=== PATIENT | female | born 2000 | race African-American/Black ===

== ENCOUNTER 2025-01-06 10:36 | Outpatient (CLI) | payer OTHER, SELFPAY ==
--- NOTE | ~2025-01-06 | US_ITS ---
EXAMINATION: US OB /maternal detail DATE: 01/06/2025 12:37 INDICATION: anatomic survey during second trimester TECHNIQUE: Multiple obstetric sonographic images performed. FINDINGS: There is a single living fetus in transverse lie with vertex to maternal left. The placenta is anteri or with caudal margin 3.1 cm from the internal cervical os. Small internal very hypoechoic placental jesus. Normal cervical length of 4.4 cm. Inadequate fluid volume is subjectively normal with normal de epest vertical pocket measurement of 4.3 cm. heart rate of 155 beats per minute. The following anatomy was identified as normal: Ventricles, choroid plexus, falx and cava septum pellucidum Cerebellum and cisterna magna Nuchal fold Nasal bone Upper lip Spine Heart Diaphragm Stomach Kidneys Bladder 3 vessel cord and cord insertion Bilateral upper and lower extremities including hands and feet The following biometric data were obtained: BPD: 4.7 cm -> 20 weeks 2 days Head circumference: 17.6 cm -> 20 weeks 1 days Abdominal circumference: 14.9 cm -> 20 weeks 1 days Femur length: 3.5 cm -> 21 weeks 0 days These measurements are concordant. Head circumference to abdominal circumference ratio: 1.19 (normal range 1.07-1.25). Estimated weight: 356 g (+/-) 53 g. or 13 oz. (+/-) 2 oz. IMPRESSION: 1. Single living fetus with transverse lie with heart rate of 155 bpm. 2. Gestational age by ultrasound of 20 weeks 3 day(s) (+/-) 1 week 3 day(s) with ultrasound estimat ed date of delivery (YONIS) of 05/23/2025. Estimated weight is 26th percentile by Hadlock criteria when is used as the YONIS. Please correlate with clinical information or earlier ultrasounds for most accurate YONIS. 3. Normal survey. Reviewed, dictated and finalized at location B. IMPRESSION: 1. Single living fetus with transverse lie with heart rate of 155 bpm. 2. Gestational age by ultrasound of 20 weeks 3 day(s) (+/-) 1 week 3 day(s) w ith ultrasound estimated date of delivery (YONIS) of 05/23/2025. Estimated w eight is 26th percentile by Hadlock criteria when is used as the YONIS. Please co rrelate with clinical information or earlier ultrasounds for most accurate YONIS. 3. Normal survey.
--- OUTSIDE RECORDS SUMMARY | 2025-01-06 11:58 | XMS_ITS | Clinical Summary ---
Author Organization [facility] Address [address] [place] [address] Care Team Providers Care Food And Nutrition Professor Name Role Phone None, Provider MD Primary Care Provider Unavaila ble Allergies No known active allergies Medications Acetaminophen-C odeine (TYLENOL/CODEIN E #3) 300-30 MG tabletIndicatio ns:Acute Pain < 7 Day Supply Take 1-2 tablets by mouth every 4 (four) hours as needed for Pain. 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 Sex Female 10:41 PM CDT Gender Identity Not on file Sexual Orientation Not on file Last Filed Vital Signs Vital Sign Reading Time Taken Comments Blood Pressure 118/94 04/27/2022 10:46 PM CDT Pulse 85 04/27/2022 10:46 PM CDT Temperature 36.3 C (97.3 F) 04/27/2022 10:46 PM CDT Respiratory Rate 18 04/27/2022 10:46 PM CDT Oxygen Saturation 100% 04/27/2022 10:46 PM CDT Inhaled Oxygen Concentration - - Weight 90.9 kg (200 lb 6.4 oz) 04/27/2022 10:46 PM CDT Height 167.6 cm (5' 6 ) 04/27/2022 10:46 PM CDT Body Mass Index 32.35 04/27/2022 10:46 PM CDT Plan of Treatment Health Maintenance Due Date Last Done Comments Cervical Cancer Screening Pap Smear (Age 21 to 29) Every 3 Years 2002 Cervical Cancer Screening 2002 Annual Physical 2005 HPV Vaccines (1 - 3-dose series) 2017 Meningococcal B Vaccine (1 of 2 - Standard) 2018 Hepatitis C 01/09/2020 DTaP, Tdap and Td Vaccines (6 - Td or Tdap) 02/04/2023 02/04/2013, 03/21/2006, 2002, Additional history exists COVID-19 Vaccine ( season) 2024 Pneumococcal Vaccine: Pediatrics (0 to 5 Years) and At-Risk Patients (6 to 64 Years) Aged Out 2002, 2002 No longer eligibl e based on patient's age to complete this topic Hepatitis B Vaccines Completed 2002, 2002, 2002, Additional history exists Meningococcal Vaccine Aged Out 02/04/2013 No haritha afua eligible based on patient's age to complete this topic RSV Immunizations Under 20 Months Aged Out No longer eligible based on patient's age to complete this topic Insurance [employer] Member Subscriber Plan / Payer (Ef fective 2022-Present) Name:Juanis Louis Relation to Subscriber:Self Name:Juanis Louis Payer ID:[id number] (NAIC) Type:Not on file Address: [address] [employer] [place] [id number] Care Teams Food And Nutrition Professor Relationship Specialty Start Date End Date None, Provider, PCP - General 04/27/22
--- OUTSIDE RECORDS SUMMARY | 2025-01-06 11:58 | XMS_ITS | Clinical Summary ---
Author Organization [address] Address [address] [place] [id number] Care Team Providers Care Practicing Md Anesthesiologist Name Role Phone Ishaan Soto MD Primary Care Provider +1- [phone] Medications No known medications Social History Tobacco Use Types Packs/Day Years Used Date Smoking Tobacco: Never Assessed Personal Safety Answer Date Recorded Getting School Help Needed Not on file 10/08 Comments Unknown Sex and Gender Information Value Date Recorded Sex Assigned at Not on file Legal Sex Female 3:09 PM CDT Gender Identity Not on file Sexual Orientation Not on file Last Filed Vital Signs Vital Sign Reading Time Taken Comments Blood Pressure 133/92 07/05/2019 3:21 PM CDT Pulse 105 07/05/2019 3:21 PM CDT Temperature 37 C (98.6 F) 07/05/2019 3:21 PM CDT Respiratory Rate - - Oxygen Saturation 98% 07/05/2019 3:21 PM CDT Inhaled Oxygen Concentration - - Weight 68.8 kg (151 lb 10.9 oz) 07/05/2019 3:21 PM CDT Height - - Body Mass Index - - Plan of Treatment Not on file Insurance [facility] Care Teams Practicing Md Anesthesiologist Relationship Specialty Start Date End Date Ishaan Soto MD [address] [place] [address] PCP - General Pediatrics 07/09/19
--- OUTSIDE RECORDS SUMMARY | 2025-01-06 11:58 | XMS_ITS | Referral Summary ---
Author Organization [address] Address [address] [place] [id number] Care Team Providers Care Hourly Sign Language Interpreter Name Role Phone Ishaan Soto MD Primary Care Provider +1- [phone] Medications No known medications Social History Tobacco [...] Plan of Treatment Not on file Insurance [facility] Care Teams Hourly Sign Language Interpreter Relationship Specialty Start Date End Date Ishaan Soto MD [address] [place] [address] PCP - General Pediatrics 07/09/19
== END 2025-01-06 10:37 | disposition home or self-care (01) ==
PROVIDERS: PCP Obstetrics & Gynecology Gynecology; Visit Provider Obstetrics & Gynecology Gynecology
DX: Z36.9 Encounter for antenatal screening, unspecified (principal); Z3A.20 20 weeks gestation of pregnancy
CPT/HCPCS: 76805

== ENCOUNTER 2025-05-16 06:09 | Inpatient (IN) | payer OTHER, SELFPAY ==
[2025-05-16] VITALS (237 sets, daily range): BP systolic 101–157; BP diastolic 49–116; PULSE 79–123; TEMP 36.2–36.8; O2SAT 91–100; BMI 42.2
--- OUTSIDE RECORDS SUMMARY | 2025-05-16 06:14 | XMS_ITS | Clinical Summary ---
Author Organization [address] Address [address] [place] [id number] Care Team Providers Care Crm Consultant Name Role Phone Ishaan Soto MD Primary Care Provider +1- [phone] Medications No known medications Social History Tobacco [...] Plan of Treatment Not on file Insurance [facility] Care Teams Crm Consultant Relationship Specialty Start Date End Date Ishaan Soto MD [address] [place] [address] PCP - General Pediatrics 07/09/19
--- OUTSIDE RECORDS SUMMARY | 2025-05-16 06:14 | XMS_ITS | Clinical Summary ---
Author Organization [facility] Address [address] [place] [address] Care Team Providers Care Forest Resources Professor Name Role Phone None, Provider MD Primary Care Provider Unavaila ble Allergies No known active allergies Medications Acetaminophen-C odeine (TYLENOL/CODEIN E #3) 300-30 MG tabletIndicatio ns:Acute Pain < 7 Day Supply Take 1-2 tablets by mouth every 4 (four) hours as needed for Pain. 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 Sex Female 10:41 PM CDT Gender [...] 10:46 PM CDT Height 167.6 cm (5' 6) 04/27/2022 10:46 PM CDT Body Mass Index [...] 03/21/2006, 2002, Additional history exists COVID-19 Vaccine (2023- season) 2024 Pneumococcal Vaccine: Pediatrics (0 to 5 Years) and At-Risk Patients (6 to 49 Years) Aged Out 2002, 2002 No longer eligibl e based on patient's age to complete this topic Hepatitis B Vaccines Completed 2002, 2002, 2002, Additional history exists Meningococcal Vaccine Aged Out 02/04/2013 No haritha afua eligible based on patient's age to complete this topic RSV Immunizations Under 20 Months Aged Out No longer eligible based on patient's age to complete this topic Insurance [employer] Member Subscriber Plan / Payer (Ef fective 2022-Present) Name:Juanis Louis Relation to Subscriber:Self Name:Juanis Louis Payer ID:[id number] (NAIC) Type:Not on file Address: [address] Care Teams Forest Resources Professor Relationship Specialty Start Date End Date None, Provider, PCP - General 04/27/22
[2025-05-16 06:44] LABS: Hematocrit 35.6 % (37.0-47.0); Hemoglobin 11.3 g/dL (12.0-15.0); Immature Granulocyte Percent A 0.9 % (0-0.5); Lymphocytes Absolute Auto 2.19 K/mm3 (0.9-3.2); Mean Corpuscular HGB Conc 31.7 g/dl (32-36); Mean Corpuscular Hemoglobin 25.6 pg (26-34); Mean Corpuscular Volume 80.7 fl (80-100); Nucleated Red Blood Cells Absolute Auto 0.000 K/mm3 (0.0-0.012); Nucleated Red Blood Cells Perc 0.0 % (0.0-0.2); Platelet Count Result 232 k/mm3 (150-375); Red Blood Count 4.41 M/mm3 (4.2-5.4); White Blood Count 13.0 K/mm3 (4.5-10.0)
[2025-05-16] MEDS: LACTATED RINGERS 1,000 ML 125 ML IV CONT (06:52)
[2025-05-16] MEDS: OXYTOCIN 30 UNITS/NS 500 ML 30 UNITS/500 ML BAG 6 UNITS IV CONT (07:00)
--- NOTE | 2025-05-16 07:03 | LDADM ---
This patient, Juanis Louis, was admitted to Labor/Delivery/Recovery 106 on 05/16/25 at 06:09. Plans for labor, pain management and were discussed with patient. Patient/family oriented to hospital policies and general routines including ID bracelet, bed and alarms, visiting hours, pain management, procedures, bathroom and other care routines, personal items, smoking policy, room service/diet and guest tray routines, infant security routines, and visiting hours. Patient/Family are encouraged to report perceived risks to care and to ask questions if they do not understand what they are told or what they should do. See OBIX for further documentation.
--- NOTE | 2025-05-16 07:07 | WPDANESEPP ---
Anes - Eval Pre Procedure Procedure: labor epidural Date/Time: 05/16/25 07:07 Surgeon: austin Preop Diagnosis: pain during labor Pre Op Diagnosis: IOL Patient Data Age: 25 Gender: F Height: Weight: Last Vital Signs Temp 36.3 C L 05/16/25 06:57 Pulse 120 H 05/16/25 07:00 BP 135/80 05/16/25 07:00 Allergies Allergy/AdvReac Type Severity Reaction Status Date / Time No Known Allergies Allergy Verified 04/21/25 13:23 Home Medications ?Medication ?Instructions ?Recorded ?Confirmed ?Type vits no.130-ferrous fum 1 tablet PO DAILY 04/21/25 04/21/25 History 27 mg iron-folic acid 800 mcg tablet ( Vitamin) Laboratory Tests 05/16/25 06:20 WBC 13.0 H K/mm3 (4.5-10.0) RBC 4.41 M/mm3 (4.2-5.4) Hgb 11.3 L g/dL (12.0-15.0) Hct 35.6 L % (37.0-47.0) MCV 80.7 fl (80-100) MCH 25.6 L pg (26-34) MCHC 31.7 L g/dl (32-36) RDW 14.6 H % (11.5-14.5) Plt Count 232 k/mm3 (150-375) MPV 10.8 H fl (7.4-10.4) Immature Gran % (Auto) 0.9 H % (0-0.5) Neut % (Auto) 75.8 H % (45.5-73.1) Lymph % (Auto) 16.8 L % (18.3-44.2) Sheridan % (Auto) 5.8 % (2.6-8.5) Eos % (Auto) 0.5 % (0-4.4) Baso % (Auto) 0.2 % (0.2-1.2) Lymph # (Auto) 2.19 K/mm3 (0.9-3.2) Sheridan # (Auto) 0.8 H K/mm3 (0.1-0.6) Eos # (Auto) 0.1 K/mm3 (0-0.3) Baso # (Auto) 0.0 K/mm3 (0.0-0.1) Abs Immat Gran (auto) 0.12 H K/mm3 (0.00-0.031) Absolute Neuts (auto) 9.9 H K/mm3 (1.3-6.7) Absolute Nucleated RBC 0.000 K/mm3 (0.0-0.012) Nucleated RBC % 0.0 % (0.0-0.2) Sodium Pending Potassium Pending Chloride Pending Carbon Dioxide Pending Anion Gap Pending BUN Pending Creatinine Pending Estim Creat Clear Calc Pending Estimated GFR Pending Glucose Pending Uric Acid Pending Calcium Pending Total Bilirubin Pending AST Pending ALT Pending Alkaline Phosphatase Pending Total Protein Pending Albumin Pending Patient hx anesthesia problems: none Family hx anesthesia problems: none Results Review: All pre-operative results and documents have been reviewed as part of the pre-operative evaluation. [facility] Past Medical History Medical History (Updated 05/16/25 @ 07:08 by Jacinta Casas CRNA) IUP (intrauterine ), incidental Social History Social History Substance use: never Spiritual care concerns: No Exam Day of Procedure 05/16/25 07:07
[2025-05-16 07:17] LABS: Alanine Aminotransferase 14 U/L (6-35); Albumin Level 3.6 g/dL (3.5-5.1); Alkaline Phosphatase 157 U/L (38-126); Anion Gap 10 mmol/L (4-12); Aspartate Amino Transferase 23 U/L (14-36); Bilirubin,Total 0.3 mg/dL (0.2-1.3); Blood Urea Nitrogen 4 mg/dL (7-17); Calcium 9.2 mg/dL (8.4-10.2); Carbon Dioxide 19 mmol/L (22-30); Chloride 107 mmol/L (98-107); Estimated Glomerular Filt Rate > 60; Glucose 106 mg/dL (65-110); Potassium 3.5 mmol/L (3.4-5.0); Sodium 136 mmol/L (137-145); Total Protein 7.2 g/dL (6.3-8.2); Uric Acid 4.6 mg/dL (2.5-7.5)
[2025-05-16 08:45] LABS: Syphilis IgG/IgM Antibody Non-Reactive (Nonreactive)
--- NOTE | 2025-05-16 10:17 | WPDOBADMIT ---
Obstetrics - Admit Note Admission Note: record reviewed. No pertinent additions to the history and/or any subsequent changes in the physical findings that are not consistent with the expected course of the were found. Additions to the history and/or subsequent changes in the physical findings follow. Here for MIL. Cervix 2-3/70/-2 AROM with clear fluid. FHTS cat I. Pitocin per protocol.
[2025-05-16] MEDS: LACTATED RINGERS 1,000 ML 999 ML IV CONT ×2 (10:54→16:01)
[2025-05-16] MEDS: ONDANSETRON INJ 4 MG/2 ML VIAL IV PUSH (10:58)
[2025-05-16] MEDS: fentaNYL CITRATE INJ (*CRX) 100 MCG/2 ML VIAL IV PUSH (11:00)
[2025-05-17] VITALS (142 sets, daily range): BP systolic 100–162; BP diastolic 42–133; PULSE 32–194; RESP 16–18; TEMP 36.4–37; O2SAT 75–100
[2025-05-17] MEDS: LACTATED RINGERS 1,000 ML 125 ML IV CONT (00:16)
[2025-05-17] MEDS: TERBUTALINE SULFATE 1 MG/ML VIAL 0.25 MG SUB-Q (00:43)
[2025-05-17] MEDS: OXYTOCIN 30 UNITS/NS 500 ML 30 UNITS/500 ML BAG 6 UNITS IV CONT (01:50)
[2025-05-17] MEDS: AMPICILLIN SODIUM 2 GM in SODIUM CHLORIDE 0.9% IV 100 ML 200 ML IVPB (04:23)
--- NOTE | 2025-05-17 06:42 | PM.OBPNLAB ---
Pain Control Date/time seen: 05/17/25 06:42 Pain control: epidural Pelvic Exam Dilation (cm): 10 station: +2 Amniotic membrane status: Ruptured Contractions Monitor mode: Internal Contraction pattern: Regular Status status: Category l Assessment and Plan Assessment: induction ongoing and other (Will start pushing) Comments: slow steady progress despite pitocin being stopped on and off FHTs currently Cat I. Several bradycardic episodes in night that resolved with position change, dc pitocin, and terb x 1.
--- NOTE | 2025-05-17 07:34 | P.PCNOB_ITS ---
OB - Vaginal Delivery Note Procedure Delivery date: 05/17/25 Events: Other (MIL at 39 wks) Induction method: AROM and Per Pitocin Protocol Delivery monitor: External FHT and Internal Uterine Route of delivery: Episiotomy description: None Laceration Description: Periurethral (left) Delivery repair: vicryl (3-0) Specimen: No Quantitative Blood Loss (ml): 150 Anesthesia type: Epidural Disposition: PACU Complications: No immediate complications [place] Baby Date of : 05/17/25 Gestational Age by Date: 39 Infant gender: Female presentation: vertex position: Right Occiput Anterior Placenta delivery description: Spontaneous Cord Vessel Description: 3 Vessels, Delayed Cord Clamping and Other (cord looped at neck) score one minute: 8 score five minutes: 9
--- NOTE | 2025-05-17 07:35 | P.DS_ITS ---
DS: Admitting Diagnosis Discharge Date 05/18/25 Admitting Diagnosis IUP 39 wks for ALFRED DS: Discharge Diagnosis Discharge Diagnosis (1) (normal spontaneous vaginal delivery): Code(s): O80 - Encounter for full-term uncomplicated delivery Status: Acute OB - DS: Summary OB Procedures : Ultrasound OB Procedures Intrapartum: Spontaneous Vag Delivery OB Procedures: : None Peripartum Data Infant Delivery Method: Natural Vaginal Laceration Description: Periurethral (left) Episiotomy description: None complications: none Status at Discharge Functional status at discharge: independent ambulation Overall status at discharge: patient is progressing back to baseline Time Spent with Patient Time attestation: Total time spent providing and/or coordinating discharge services: DS: Data Data Completed and Pending Labs on day of discharge: Labs from last 24 hours 05/16/25 06:20 Syphilis IgG/IgM Ab Non-reactive Antibody Screen Negative Discharge Plan Discharge Attending physician on discharge: Karen Nieto Discharging Clinician: Karen Nieto Anticipated Discharge Date/Time: 05/19/25 07:36 Patient Disposition: Home Activity: may shower and pelvic rest Diet: regular Patient Instructions: Antibiotic Form Patient Language: Montserratian Stand Alone Forms: General Discharge Information Follow-up/Referrals: Karen Nieto MD [Physician] - 6 Weeks Discharge Medications: Continued Vitamin 27 mg iron- 800 mcg tablet 1 tablet PO DAILY Date of admission: 05/16/25 06:09 Primary Care Provider: UNKNOWN,DOCTOR Admitting Provider: Karen Nieto Attending physician on admission: Karen Nieto Condition: Stable
[2025-05-17] MEDS: OXYTOCIN 30 UNITS/NS 500 ML 30 UNITS/500 ML BAG 125 UNITS IV CONT (07:54)
--- NOTE | 2025-05-17 09:45 | PC.NURSE ---
Patient transferred to post room #278 via crib. Support person present. Oriented to unit, room, information board, rooming in, admission packet and security measures. Patient verbalizes understanding.
[2025-05-17] MEDS: IBUPROFEN 600 MG TABLET PO ×2 (11:18→19:12)
[2025-05-18 05:02] LABS: Hematocrit 34.0 % (37.0-47.0); Hemoglobin 10.6 g/dL (12.0-15.0)
[2025-05-18 08:15] VITALS: BP 139/97; PULSE 86; RESP 16; TEMP 36.5; O2SAT 100
[2025-05-18] MEDS: IBUPROFEN 600 MG TABLET PO (08:23)
--- NOTE | 2025-05-18 09:24 | P.PNOB_ITS ---
OB - PN: Subj Subjective Date/time seen: 05/18/25 09:24 Patient comments: no complaints and pain well controlled baby status: doing well OB - PN: Obj Data Labs 05/18/25 04:39 05/16/25 06:20 Labs: Laboratory Results - last 24 hr 05/18/25 04:39 Hgb 10.6 L Hct 34.0 L OB - PN A/P Plan day: 1 Plan: routine care, discharge home, follow up 6 weeks and other (uncertain about bc) Time Spent With Patient Time: Total time spent is greater than 50% in coordination of care (as documented) at patient's floor/unit and/or counseling patient: Exam 2 : Bimanual exam- vagina & uterus: other (Uterus firm, nt @U)
[2025-05-20 09:27] VITALS: BP 126/79; PULSE 87; RESP 18; TEMP 37.1; O2SAT 100
== END 2025-05-18 12:25 | disposition home or self-care (01) | DRG 560 ==
LOC: ANHLDR 05-17 07:37 → ANHOB2 05-17 09:51
PROVIDERS: Admitting Provider Obstetrics & Gynecology Gynecology; Visit Provider Obstetrics & Gynecology Gynecology
DX: O69.2XX0 Labor and delivery complicated by other cord entanglement, with compression, not applicable or unspecified (principal); O71.82 Other specified trauma to perineum and vulva; Z3A.39 39 weeks gestation of pregnancy; Z37.0 Single live birth
CPT/HCPCS: 36415; 80053; 84550; 85014; 85018; 85025; 86593; 86850; 86900; 86901; A9270; J0290; J2405; J2590; J2795; J3010; J3105; J7120